=== PATIENT | female | born 1955 | race Caucasian/White ===

== ENCOUNTER 2021-04-25 08:00 | Outpatient (CLI) | payer BC, MEDICARE ==
--- NOTE | 2021-04-27 09:05 | XRAY Report ---
PROCEDURE: Wrist 3 View RT INDICATIONS: PAIN IN RIGHT WRIST TECHNIQUE: 3 views of the wrist were acquired. COMPARISON: None FINDINGS: Bones: There is an impacted, slightly comminuted, and mainly transverse fracture of the distal radius with extension of the fracture plane to the articular surface. There is proximal migration of the pr oximal carpal row due to impaction. No jovita dislocation. There is also a moderately displaced ulnar styloid fracture. Soft tissues: No suspicious soft tissue calcifications. No radiodense foreign bodies. Mild soft tis kristofer swelling. IMPRESSION: Impacted, intra-articular distal radius fracture. Displaced ulnar styloid fracture. Reviewed by: Chyna Bone MD on 04/27/2021 9:04 AM PST Approved by: Chyna Bone MD on 04/27/2021 9:04 AM PST Station ID: [id number]
== END 2021-04-25 23:59 | disposition home or self-care (01) ==
LOC: DI.S 08:00
PROVIDERS: ATTEND Physician Assistant
DX: S52.571A Other intraarticular fracture of lower end of right radius, initial encounter for closed fracture (principal); S52.611A Displaced fracture of right ulna styloid process, initial encounter for closed fracture